=== PATIENT | female | born 1950 ===

== ENCOUNTER 2018-02-10 07:05 | Day surgery (SDC) | payer MEDICARE ==
--- NOTE | 2018-01-29 00:34 | HP ---
CC: Dr. Binh Kim * HISTORY AND PHYSICAL: DATE OF PLANNED ADMISSION AND SURGERY: 02/10/18. HISTORY OF PRESENT ILLNESS: Mrs. Mcdowell is a 67-year-old white female who is admitted with suspicious bladder lesions for cystoscopy and excisional biopsies. Mrs. Mcdowell was referred by Dr. Kim because of asymptomatic microscopic hematuria. There was no associated flank or abdominal pain and no voiding symptoms. She denied any episodes of gross hematuria, urinary tract infections or voiding symptoms. The patient was worked up in the office and had bilateral renal ultrasound, which was normal. Office cystoscopy showed 3 small lesions measuring about 5 mm each located in the left base of the bladder lateral to the left ureteral orifice. The lesions had the appearance of possible low- grade transitional cell carcinoma. The rest of the bladder wall looked normal. Because of these findings, the patient is admitted for excisional biopsies. PAST MEDICAL HISTORY AND SYSTEM REVIEW: She is in excellent health. She is a nonsmoker. She denies any cardiac or pulmonary diseases or symptoms. She is on no chronic medications and she reports having a rash with the use of PENICILLIN. GYNECOLOGIC HISTORY: Relevant for 1 vaginal delivery. She had an abdominal hysterectomy and 1 oophorectomy in 1989. She is on no hormone replacement therapy. PHYSICAL EXAMINATION GENERAL: She is moderately overweight, otherwise healthy looking white female. VITAL SIGNS: Blood pressure 120/80, pulse of 60. LUNGS: Clear. HEART: Regular and rhythmic. No murmurs. ABDOMEN: Soft. No masses. No tenderness and no CVA tenderness. Pelvic exam at the time of the cystoscopy showed no pelvic masses. IMPRESSION: Microscopic hematuria with 3 small bladder lesions in the left base on cystoscopy. PLAN: Plan is for cystoscopy and excisional biopsies. I discussed the above plans with the patient. All her questions were answered. [id number] #: [id number] MELINDA
[~2018-02-10 07:05] MED LIST: Buffered Lidocaine 0.9% SYRIN* 5 ML/SYR SYRINGE INTRADERM ONE; Dexamethasone IV* 4 MG/ML 1 ML (4 MG) IV SLOW PU ONE; Famotidine IV* 10 MG/ML 2 ML (20 mg) IV ONE; cefTRIAXone(*) 1 GM in NS 0.9% 50 ML* 50 ML IVPB ONE
[2018-02-10] MEDS ORDERED: Famotidine IV* 10 MG/ML 2 ML (20 mg) ONE (07:11)
[2018-02-10] MEDS ORDERED: Dexamethasone IV* 4 MG/ML 1 ML (4 MG) ONE (07:11)
[2018-02-10] MEDS ORDERED: Acetaminophen TAB* 325 MG PO PRN (07:26)
[2018-02-10] MEDS ORDERED: HYDROcodone/ACETAMIN 5-325 MG* 1 TAB PO PRN (07:26)
[2018-02-10] MEDS ORDERED: Naloxone* 0.4 MG/ML 1 ML VIAL IV PRN (07:26)
[2018-02-10] MEDS ORDERED: fentaNYL* 50 MCG/ML 2 ML VIAL (100 MCG VIAL) IV PRN (07:26)
[2018-02-10] MEDS ORDERED: DiMENhydriNATE IV* 50 MG/ML VIAL IV PUSH PRN (07:26)
[2018-02-10] MEDS ORDERED: Ondansetron INJ* 2 MG/ML VIAL IV PRN (07:26)
[2018-02-10] MEDS ORDERED: Morphine INJ* 2 MG/ML 1 ML SYRINGE (TWO MG - NEW SYRINGE VERSION) IV PRN (07:26)
[2018-02-10] MEDS ORDERED: fentaNYL* 50 MCG/ML 2 ML VIAL (100 MCG VIAL) ONE (08:06)
[2018-02-10] MEDS ORDERED: Lidocaine 2% PF * 5 ML VIAL ONE (08:06)
[2018-02-10] MEDS ORDERED: Propofol* 10 MG/ML 20 ML BTL IV PUSH ONE (08:07)
[2018-02-10] MEDS ORDERED: Ondansetron INJ* 2 MG/ML VIAL ONE (09:00)
[2018-02-10 10:20] VITALS: BP 113/94
--- NOTE | 2018-02-10 22:23 | OP ---
CC: Binh Kim MD * DATE OF OPERATION: 02/10/18 - [facility] DATE OF : 46 SURGEON: Ki Orlando MD ANESTHESIOLOGIST: Dr. Gotti. ANESTHESIA: General. PRE-OP DIAGNOSIS: Suspicious bladder lesions, left base. POST-OP DIAGNOSIS: Pending pathology. OPERATIVE PROCEDURES: 1. Cystoscopy. 2. Excisional biopsies and fulguration of three lesions of the left base of the bladder (5 mm each). INDICATIONS FOR PROCEDURE: Mrs. Mcdowell is a 67-year-old white female who was referred by Dr. Kim for workup of microscopic hematuria. She is a nonsmoker. Renal ultrasound was normal. Office cystoscopy showed three flat hyperemic lesions, measuring 5 mm each, located in the left base of the bladder lateral to the left ureteral orifice. The rest of the bladder wall looked normal and no other suspicious lesions were seen. The lesions had the gross appearance of either inflammatory lesions or early low grade flat transitional cell carcinomas. Because of the above findings, the patient is admitted for excisional biopsies. PATHOLOGY AT CYSTOSCOPY: The above described lesions were again seen. The ureteral orifices looked normal. Clear efflux was seen coming from both orifices. The rest of the bladder wall looked normal. DESCRIPTION OF PROCEDURE: After successful general anesthesia, the patient was placed in the lithotomy position and was prepped and draped for a cystoscopy. Cystoscopy was performed. The bladder was carefully inspected and the above findings were noted. Using the rigid biopsy forceps, the three above-described lesions were excised down to muscle. Inspection showed no evidence of bladder perforation. The sites of the biopsies were then thoroughly fulgurated with the coagulation current achieving very very good hemostasis. At the end of the procedure, the left ureteral orifice was intact and there were no residual lesions seen. The bladder was then emptied and the cystoscope was removed. The patient tolerated the procedure well and left the operating room in good condition. Because of the low suspicion that those lesions represent malignancy, mitomycin C was not given postoperatively. [id number]/[facility] #: [id number] [facility]
== END 2018-02-10 10:21 | disposition home or self-care (01) ==
LOC: OR 07:05
PROVIDERS: ATTEND Urology
DX: N32.89 Other specified disorders of bladder (principal); R31.29 Other microscopic hematuria; Z87.891 Personal history of nicotine dependence
CPT/HCPCS: 88305; J0696; J1100; J2405; J2704; J3010